=== PATIENT | female | born 1985 | race Caucasian/White ===

== ENCOUNTER → 2017-01-01 | Outpatient (CLI) | payer OTHER ==
--- NOTE | 2017-01-01 14:23 | CARD ---
APPROVED REPORT EXAM: Two-dimensional and M-mode echocardiogram with Doppler and color Doppler. Other Information Quality : GoodHR: 91bpm Rhythm : Arrhythmia INDICATION Pre-Op RISK FACTORS Obesity Diabetes Smoking 2D DIMENSIONS RVDd2.8 (2.9-3.5cm)Left Atrium(2D)3.5 (1.6-4.0cm) IVSd1.2 (0.7-1.1cm)Aortic Root(2D)3.6 (2.0-3.7cm) LVDd4.7 (3.9-5.9cm)LVOT Diameter2.3 (1.8-2.4cm) PWd1.3 (0.7-1.1cm)LVDs3.0 (2.5-4.0cm) FS (%) 35.9 %SV66.0 ml LVEF(%)65.4 (>50%) Aortic Valve AoV Peak Elian.134.4cm/sAoV VTI24.0cm AO Peak GR.7.2mmHgLVOT Peak Elian.118.0cm/s LVOT VTI 24.01cmAO Mean GR.4mmHg MARILEE (VMAX)3.72bs1UTH (VTI)4.18cm2 Mitral Valve MV E Dsfwgkih38.9cm/sMV E Peak Gr.6mmHg MV DECEL [id number] A Alnbdghn11.4cm/s MV E Mean Gr.3mmHgE/A Ratio0.7 MV A [id number] Pulmonary Valve PV Peak Pslpcbvl28.0cm/sPV Peak Grad.4mmHg Pulmonary Vein S1 Fdobvsuv02.9cm/sD2 Iuxwynqa97.6cm/s LEFT VENTRICLE The left ventricle is normal size. There is mild concentric left ventricular hypertrophy. The left ve ntricular systolic function is normal. The Ejection Fraction is 60-65%. There is normal LV segmental wall motion. Transmitral Doppler flow pattern is Grade I-abnormal relaxation pattern. RIGHT VENTRICLE The right ventricle is normal size. There is normal right ventricular wall thickness. The right ventr icular systolic function is normal. 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 Recommend TIFF for further evaluatio n. ATRIA The left atrium size is normal. The right atrium size is normal. The interatrial septum is intact wit h no evidence for an atrial septal defect or patent foramen ovale as noted on 2-D or Doppler imaging. AORTIC VALVE The aortic valve is normal in structure and function. Doppler and Color Flow revealed no significant aortic regurgitation. There is no significant aortic valvular stenosis. MITRAL VALVE The mitral valve is normal in structure and function. There is no evidence of mitral valve prolapse. There is no mitral valve stenosis. Doppler and Color Flow revealed no mitral valve regurgitation note d. TRICUSPID VALVE Doppler and Color Flow revealed trace tricuspid regurgitation. There is no pulmonary hypertension. PULMONIC VALVE The pulmonary valve is normal in structure and function. Doppler and Color Flow revealed no pulmonic valvular regurgitation. There is no pulmonic valvular stenosis. GREAT VESSELS The aortic root is normal in size. The ascending aorta is normal in size. The pulmonary artery is nor mal. The IVC is normal in size and collapses >50% with inspiration. PERICARDIAL EFFUSION There is no evidence of significant pericardial effusion. Critical Notification Physician Notified Date: 01/01/2017 Time: 13:56 Critical Value: Yes <Conclusion> The left ventricular systolic function is normal. The Ejection Fraction is 60-65%. There is normal LV segmental wall motion. Transmitral Doppler flow pattern is Grade I-abnormal relaxation pattern. Doppler and Color Flow revealed trace tricuspid regurgitation. There is no evidence of significant pericardial effusion. 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 Recommend TIFF for further evaluation.
== END | disposition home or self-care (01) ==
LOC: ECHO 12:57
PROVIDERS: ATTEND Internal Medicine Cardiovascular Disease
DX: Z01.818 Encounter for other preprocedural examination (principal); I51.7 Cardiomegaly; I07.1 Rheumatic tricuspid insufficiency; E11.9 Type 2 diabetes mellitus without complications; E66.9 Obesity, unspecified; F17.210 Nicotine dependence, cigarettes, uncomplicated
CPT/HCPCS: 93306

== ENCOUNTER 2017-11-30 00:14 | Emergency (ER) | payer OTHER ==
[~2017-11-30] VITALS: Ht 165.1 cm; Wt 99.8 kg
[2017-11-30 00:40] VITALS: BP 118/73
--- NOTE | 2017-11-30 01:23 | PHYS DOC ---
Past History Past Medical History: Anxiety, Depression Past Surgical History: Cholecystectomy Alcohol Use: Occasionally Drug Use: Marijuana Adult General Chief Complaint Chief Complaint: GENERALIZED BODY ACHES HPI HPI Patient is a 32-year-old female presenting to the emergency department for evaluation of lower back pain radiating down the back of her leg that she feels a burning sensation consistent with prior sciatic episodes. Patient has had [address] Sanchez with her most recent being in September. Patient says that all she is taking for pain his Advil and it is not helping. She denies any bowel or bladder incontinence weakness numbness or tingling and she says the pain has been more intense over the past week to the point where she cannot tolerate it any longer. Review of Systems Review of Systems Constitutional: Denies fever or chills [] GI: Denies abdominal pain, nausea, vomiting, bloody stools or diarrhea [] : Denies dysuria or hematuria [] Musculoskeletal: + back pain. No joint pain [] Neurologic: Denies headache, focal weakness or sensory changes [] All other systems were reviewed and found to be within normal limits, except as documented in this note. Physical Exam Physical Exam Constitutional: Well developed, well nourished, no acute distress, non-toxic appearance. [] Cardiovascular:Heart rate regular rhythm, no murmur [] Lungs & Thorax: Bilateral breath sounds clear to auscultation [] Abdomen: Bowel sounds normal, soft, no tenderness, no masses, no pulsatile masses. [] Back: Positive right lumbar paraspinal tenderness to palpation. Extremities: No tenderness, no cyanosis, no clubbing, ROM intact, no edema. [] Neurologic: Alert and oriented X 3, normal motor function, normal sensory function, no focal deficits noted. [] Current Patient Data Vital Signs Vital Signs Date Time Temp Pulse Resp B/P (MAP) Pulse Ox O2 Delivery O2 Flow Rate FiO2 11/30/17 00:40 98.4 94 20 96 Room Air EKG EKG [] Radiology/Procedures Radiology/Procedures [] Course & Med Decision Making Course & Med Decision Making Patient with lumbar pain rating down right leg consistent with prior sciatic pain. No red flag signs or symptoms necessitating an emergent MRI so she'll be pain control here with oxycodone and Valium. She is told to continue NSAIDs at home and will prescribe oxycodone for breakthrough pain and she says that she is allergic to Tylenol. She says that she is going to follow with Dr. Bah on Saturday. Patient aware and agreeable with plan for discharge and verbalized understanding of the need for short-term follow-up and strict ED return precautions discussed worsening pain weakness incontinence or other general concerns. Dragon Disclaimer Dragon Disclaimer This electronic medical record was generated, in whole or in part, using a voice recognition dictation system. Departure Departure: Impression: Primary Impression: Lumbar strain Additional Impression: Lumbar radicular pain Disposition: HOME, SELF-CARE Condition: STABLE Referrals: FRANK ORDONEZ MD Patient Instructions: Sciatica Scripts Oxycodone Hcl (OXYCODONE HCL) 5 Mg Capsule 5 MG PO Q6-8HRS Y for PAIN, #14 CAP Prov: GUANAKO VUONG DO 11/30/17 Problem Qualifiers Primary Impression: Lumbar strain Encounter type: initial encounter Qualified Codes: S39.012A - Strain of muscle, fascia and tendon of lower back, initial encounter GUANAKO VUONG DO Nov 30, 2017 01:23
[2017-11-30] MEDS ORDERED: OXYC5CAP PO (01:28)
[2017-11-30] MEDS ORDERED: KETOROLAC 60 MG/2 ML VIAL. IM ONE (01:45)
[2017-11-30] MEDS ORDERED: oxyCODONE IR 5 MG TABLET PO STA (01:45)
[2017-11-30] MEDS ORDERED: diazePAM 5 MG TABLET PO ONE (01:45)
== END 2017-11-30 02:15 | disposition home or self-care (01) ==
LOC: ER 00:14
DX: S39.012A Strain of muscle, fascia and tendon of lower back, initial encounter (principal); M54.16 Radiculopathy, lumbar region; F41.9 Anxiety disorder, unspecified; F32.9 Major depressive disorder, single episode, unspecified; F12.10 Cannabis abuse, uncomplicated; X58.XXXA Exposure to other specified factors, initial encounter; Y93.89 Activity, other specified; Y99.8 Other external cause status; Y92.89 Other specified places as the place of occurrence of the external cause
CPT/HCPCS: 96372; 99283; J1885

== ENCOUNTER 2018-03-20 21:54 | Emergency (ER) | payer OTHER ==
[~2018-03-20] VITALS: Ht 177.8 cm; Wt 99.8 kg
[~2018-03-20 21:54] MED LIST: OXYC5CAP PO
[2018-03-20 22:40] VITALS: BP 113/83
[2018-03-21] MEDS ORDERED: CIPR250T30 PO (14:21)
[2018-03-21] MEDS ORDERED: BUTA1CAP31 PO (14:21)
[2018-03-21] MEDS ORDERED: TRAM-48 PO (14:50)
== END 2018-03-20 23:30 | disposition left against medical advice (07) ==
LOC: ER 21:54
DX: M25.561 Pain in right knee (principal); M25.562 Pain in left knee; Z53.21 Procedure and treatment not carried out due to patient leaving prior to being seen by health care provider

== ENCOUNTER 2018-03-21 12:12 | Emergency (ER) | payer OTHER ==
[~2018-03-21] VITALS: Ht 165.1 cm; Wt 108.9 kg
[2018-03-21] MEDS ORDERED: KETOROLAC 30 MG/ML VIAL. IV ONE (13:00)
[2018-03-21] MEDS ORDERED: ONDANSETRON PF 4 MG/2 ML VIAL. IV ONE (13:00)
[2018-03-21] MEDS ORDERED: IV NORMAL SALINE 1,000ML 1,000 ML IV SCH (13:00)
[2018-03-21 13:16] LABS: BASO % 1 % (0-3); EOS # 0.2 x10^3/uL (0.0-0.7); EOS % 3 % (0-3); HEMATOCRIT 41.8 % (36.0-47.0); HEMOGLOBIN 14.2 g/dL (12.0-15.5); LYMPH # 2.6 x10^3/uL (1.0-4.8); LYMPH % 33 % (24-48); MEAN CORPUSCULAR HEMOGLOBIN 31 pg (25-35); MEAN CORPUSCULAR HGB CONC 34 g/dL (31-37); MEAN CORPUSCULAR VOLUME 91 fL (79-100); MONO # 0.6 x10^3/uL (0.0-1.1); MONO % 7 % (0-9); NEUT # 4.3 x10^3uL (1.8-7.7); NEUT % 56 % (31-73); PLATELET COUNT 355 x10^3/uL (140-400); RED CELL DISTRIBUTION WIDTH 14.2 % (11.5-14.5); WHITE BLOOD COUNT 7.7 x10^3/uL (4.0-11.0)
[2018-03-21 13:29] LABS: ALBUMIN 3.5 g/dL (3.4-5.0); ALBUMIN/GLOBULIN RATIO 0.9 (1.0-1.7); CALCIUM 8.9 mg/dL (8.5-10.1); CREATININE 0.8 mg/dL (0.6-1.0); GFR 81.6; POTASSIUM 4.1 mmol/L (3.5-5.1); TOTAL BILIRUBIN 0.2 mg/dL (0.2-1.0); TOTAL PROTEIN 7.6 g/dL (6.4-8.2)
--- NOTE | 2018-03-21 13:35 | RAD ---
CT HEAD WO CONTRAST History: Headache Comparison: None. Technique: Noncontrast CT imaging was performed of the head. Exposure: One or more of the following individualized dose reduction techniques were utilized for this examination: 1. Automated exposure control 2. Adjustment of the mA and/or kV according to patient size 3. Use of iterative reconstruction technique. Findings: No acute extra-axial or parenchymal hemorrhage is identified. There is no significant intra-axial mass effect, midline shift, or extra-axial fluid collection. The roldan-white differentiation of the major vascular territories is preserved. The ventricles, sulci, and cisterns are within normal limits in size and configuration. The mastoid air cells and the visualized paranasal sinuses are aerated. No acute calvarial abnormality is identified. Impression: 1. No acute intracranial abnormality is identified. Electronically signed by: Berry Sauer MD (03/21/2018 1:31 PM) [id number]
[2018-03-21 14:01] LABS: BACTERIA,URINE MANY /HPF (0-FEW); BILIRUBIN,URINE NEG (NEG); CLARITY,URINE CLOUDY; COLOR,URINE YELLOW; GLUCOSE,URINE NEG (NEG); HYALINE CASTS, URINE OCC /HPF; NITRITE,URINE POS (NEG); RBC,URINE 0 /HPF (0-2); SQUAMOUS EPITHELIAL CELL,UR MOD /LPF; UROBILINOGEN,URINE 0.2 mg/dL (0.2 mg/dL)
--- NOTE | 2018-03-21 14:07 | PHYS DOC ---
Past History Past Medical History: Anxiety, Depression Additional Past Medical Histor: sciatica Past Surgical History: Cholecystectomy Alcohol Use: Occasionally Drug Use: Marijuana Adult General Chief Complaint Chief Complaint: HEADACHE HPI HPI 33-year-old female patient with history of chronic sciatica status after back surgery x2 and last one in September 2017 and also history of migraine complaining of bilateral lower extremity numbness for 2 weeks that gradually getting worse. Patient states she came to this emergency room last night and left before being seen. Patient complaining of sudden onset of occipital headache since this morning as a throbbing pain nausea and photophobia and rated her pain 10 over 10. Patient states the pain is different than her usual headache as a frontal migraine headache. Patient denies fever and chills, focal neuro deficit, abdominal pain, neck pain, vomiting and diarrhea. Review of Systems Review of Systems Constitutional: Denies fever or chills [] Eyes: Denies change in visual acuity, redness, or eye pain [] HENT: Denies nasal congestion or sore throat [] Respiratory: Denies cough or shortness of breath [] Cardiovascular: No additional information not addressed in HPI [] GI: Denies abdominal pain, vomiting, bloody stools or diarrhea, reports nausea [] : Denies dysuria or hematuria [] Musculoskeletal: Denies back pain or joint pain [] Integument: Denies rash or skin lesions [] Neurologic: Reports headache and sensory change, denies focal weakness Endocrine: Denies polyuria or polydipsia [] All other systems were reviewed and found to be within normal limits, except as documented in this note. Current Medications Current Medications Current Medications Medications (Trade) Dose Ordered Sig/Jerica Start Time Stop Time Status Last Admin Dose Admin Ketorolac Tromethamine (Toradol) 30 mg 1X ONCE 03/21/18 13:00 03/21/18 13:01 DC 03/21/18 13:11 30 MG Ondansetron HCl (Zofran) 4 mg 1X ONCE 03/21/18 13:00 03/21/18 13:01 DC 03/21/18 13:10 4 MG Sodium Chloride 1,000 ml @ 1,000 mls/hr Q1H 03/21/18 13:00 03/21/18 13:59 03/21/18 13:10 1,000 MLS/HR Allergies Allergies Allergies Coded Allergies Type Severity Reaction Last Updated Verified gabapentin Allergy Intermediate 03/20/18 Yes acetaminophen Allergy Mild 11/30/17 Yes Physical Exam Physical Exam Constitutional: Well developed, well nourished, mild distress, non-toxic appearance. [] HENT: Normocephalic, atraumatic, bilateral external ears normal, oropharynx moist, no oral exudates, nose normal. [] Eyes: PERRLA, EOMI, conjunctiva normal, no discharge. [] Neck: Normal range of motion, no tenderness, supple, no stridor. [] Cardiovascular:Heart rate regular rhythm, no murmur [] Lungs & Thorax: Bilateral breath sounds clear to auscultation [] Abdomen: Bowel sounds normal, soft, no tenderness, no masses, no pulsatile masses. [] Skin: Warm, dry, no erythema, no rash. [] Back: No tenderness, no CVA tenderness. [] Extremities: No tenderness, no cyanosis, no clubbing, ROM intact, no edema. [] Neurologic: Alert and oriented X 3, normal motor function, normal sensory function, no focal deficits noted. [] Psychologic: Affect normal, judgement normal, mood normal. [] Current Patient Data Vital Signs Vital Signs Date Time Temp Pulse Resp B/P (MAP) Pulse Ox O2 Delivery O2 Flow Rate FiO2 03/21/18 13:48 77 20 109/60 (76) 97 Room Air 03/21/18 12:12 97.8 Lab Results Laboratory Tests Test 03/21/18 12:59 White Blood Count 7.7 x10^3/uL (4.0-11.0) Red Blood Count 4.60 x10^6/uL (3.50-5.40) Hemoglobin 14.2 g/dL (12.0-15.5) Hematocrit 41.8 % (36.0-47.0) Mean Corpuscular Volume 91 fL (79-100) Mean Corpuscular Hemoglobin 31 pg (25-35) Mean Corpuscular Hemoglobin Concent 34 g/dL (31-37) Red Cell Distribution Width 14.2 % (11.5-14.5) Platelet Count 355 x10^3/uL (140-400) Neutrophils (%) (Auto) 56 % (31-73) Lymphocytes (%) (Auto) 33 % (24-48) Monocytes (%) (Auto) 7 % (0-9) Eosinophils (%) (Auto) 3 % (0-3) Basophils (%) (Auto) 1 % (0-3) Neutrophils # (Auto) 4.3 x10^3uL (1.8-7.7) Lymphocytes # (Auto) 2.6 x10^3/uL (1.0-4.8) Monocytes # (Auto) 0.6 x10^3/uL (0.0-1.1) Eosinophils # (Auto) 0.2 x10^3/uL (0.0-0.7) Basophils # (Auto) 0.0 x10^3/uL (0.0-0.2) Sodium Level 139 mmol/L (136-145) Potassium Level 4.1 mmol/L (3.5-5.1) Chloride Level 104 mmol/L (98-107) Carbon Dioxide Level 27 mmol/L (21-32) Anion Gap 8 (6-14) Blood Urea Nitrogen 10 mg/dL (7-20) Creatinine 0.8 mg/dL (0.6-1.0) Estimated GFR (Cockcroft-Gault) 81.6 BUN/Creatinine Ratio 13 (6-20) Glucose Level 92 mg/dL (70-99) Calcium Level 8.9 mg/dL (8.5-10.1) Magnesium Level 2.0 mg/dL (1.8-2.4) Total Bilirubin 0.2 mg/dL (0.2-1.0) Aspartate Amino Transferase (AST) 13 U/L (15-37) L Alanine Aminotransferase (ALT) 23 U/L (14-59) Alkaline Phosphatase 72 U/L (46-116) Total Protein 7.6 g/dL (6.4-8.2) Albumin 3.5 g/dL (3.4-5.0) Albumin/Globulin Ratio 0.9 (1.0-1.7) L EKG EKG [] Radiology/Procedures Radiology/Procedures [[address] [address] IMAGING REPORT Signed PATIENT: DEBBI BARRETT ACCOUNT: [id number] : 1985 LOCATION: ER AGE: 33 SEX: F EXAM STATUS: REG ER ORD. PHYSICIAN: CRISTY LOAIZA MD REASON: Headache PROCEDURE: CT HEAD WO CONTRAST CT HEAD WO CONTRAST History: Headache Comparison: None. Technique: Noncontrast CT imaging was performed of the head. Exposure: One or more of the following individualized dose reduction techniques were utilized for this examination: 1. Automated exposure control 2. Adjustment of the mA and/or kV according to patient size 3. Use of iterative reconstruction technique. Findings: No acute extra-axial or parenchymal hemorrhage is identified. There is no significant intra-axial mass effect, midline shift, or extra-axial fluid collection. The roldan-white differentiation of the major vascular territories is preserved. The ventricles, sulci, and cisterns are within normal limits in size and configuration. The mastoid air cells and the visualized paranasal sinuses are aerated. No acute calvarial abnormality is identified. Impression: 1. No acute intracranial abnormality is identified. Electronically signed by: Mary Kate Pantoja MD (03/21/2018 1:31 PM) [id number] DICTATED AND SIGNED BY: MARY KATE PANTOJA MD DATE: 03/21/18 1330 CC: CRISTY LOAIZA MD; CATHIE FERNANDEZ APRN ~ ] Course & Med Decision Making Course & Med Decision Making Pertinent Labs and Imaging studies reviewed. (See chart for details) Evaluation of patient in ER showed 33-year-old female patient with complaining of headache different than her usual migraine headache. Patient had unremarkable physical exam. Neurovascular deficit. Patient treated with IV fluid , Zofran, Toradol and hydrocodone and felt better. Patient has complaining of bilateral lower extremity numbness without real paresthesia and instructed to follow-up with her neurosurgeon. [] Dragon Disclaimer Dragon Disclaimer This electronic medical record was generated, in whole or in part, using a voice recognition dictation system. Departure Departure: Impression: Primary Impression: Migraine headache Additional Impressions: Paresthesia Chronic back pain Urinary tract infection Disposition: HOME, SELF-CARE (at 1416) Condition: IMPROVED Referrals: CATHIE FERNANDEZ APRN (PCP) Patient Instructions: Migraine Headache, Paresthesia, Urinary Tract Infection Additional Instructions: Drink plenty of liquids Follow-up with your primary care physician in 3-5 days Return to ER if not getting better Follow-up with your neurosurgeon Scripts Tramadol Hcl (ULTRAM) 50 Mg Tablet 50 MG PO PRN Q6HRS PRN for PAIN, #14 TAB Prov: CRISTY LOAIZA MD 03/21/18 Ciprofloxacin Hcl (CIPRO) 250 Mg Tablet 1 TAB PO BID, #6 TAB Prov: CRISTY LOAIZA MD 03/21/18 Problem Qualifiers CRISTY LOAIZA MD Mar 21, 2018 14:07
[2018-03-21] MEDS ORDERED: CIPR250T30 PO (14:21)
[2018-03-21] MEDS ORDERED: BUTA1CAP31 PO (14:21)
[2018-03-21] MEDS ORDERED: HYDROcodone/APAP 5/325MG 1 TAB TABLET PO ONE (14:40)
[2018-03-21 14:45] VITALS: BP 115/79
[2018-03-21] MEDS ORDERED: HYDROcodon/IBUPROFEN 7.5/200MG 1 TAB TABLET PO ONE (14:45)
[2018-03-21] MEDS ORDERED: TRAM-48 PO (14:50)
== END 2018-03-21 14:45 | disposition home or self-care (01) ==
LOC: ER 12:12
DX: G43.909 Migraine, unspecified, not intractable, without status migrainosus (principal); R20.2 Paresthesia of skin; G89.29 Other chronic pain; N39.0 Urinary tract infection, site not specified; F41.9 Anxiety disorder, unspecified; F32.9 Major depressive disorder, single episode, unspecified; Z88.6 Allergy status to analgesic agent; Z88.8 Allergy status to other drugs, medicaments and biological substances; Z90.49 Acquired absence of other specified parts of digestive tract
CPT/HCPCS: 36415; 70450; 80053; 81001; 83735; 85025; 87086; 87186; 96374; 96375; 99285; J1885; J2405; J7030